=== PATIENT | female | born 1950 | race Caucasian/White ===

== ENCOUNTER → 2021-07-15 | Outpatient (REF) | payer MEDICARE ==
[2021-07-15 15:25] LABS: POTASSIUM 3.6 mmol/L (3.5-5.1)
[2021-07-15 15:26] LABS: CALCIUM 8.8 mg/dL (8.3-10.5)
== END ==
LOC: LAB 14:54 → EDSTATUS 15:02
PROVIDERS: Family Medicine
DX: I50.23 Acute on chronic systolic (congestive) heart failure (principal)